=== PATIENT | female | born 1965 | race Hispanic/Latino ===

== ENCOUNTER → 2018-10-30 | Day surgery (SDC) | payer OTHER ==
[~2018-10-30] MED LIST: CRESTOR10 MG PO; FENTANYL CITRATE/PF 100MCG/2 ML INJ ONE; FEROSUL325 MG PO; LISINOPRIL10 MG PO; METFORMIN HCL500 MG PO; MIDAZOLAM HCL 5 MG/ML VIAL ONE; OMEGA-31000 MG PO; PROPOFOL IV EMULSION 10 MG/ML 50 ML VIAL ONE
--- OUTSIDE RECORDS SUMMARY | 2018-10-30 08:23 | XMS REPORT | Clinical Summary ---
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 Active metFORMIN (GLUCOPHAGE) Take 1,000 mg 0 1000 MG tablet by mouth 2 (two) times daily with breakfast and dinner. Active pravastatin (PRAVACHOL) Take 40 mg by 0 40 MG tablet mouth daily. Active pantoprazole (PROTONIX) Take 1 tablet 10 tablet 0 40 MG tablet (40 mg total) 7 by mouth 2 (two) times daily. Active Problems Problem Noted Date Chest pain 02/20/2017 Vomiting 02/20/2017 Diabetes mellitus, type 2 02/20/2017 Essential hypertension 02/20/2017 Hyperlipidemia 02/20/2017 Family History Medical History Relation Name Comments Cancer Brother Early Brother Depression Father Diabetes Father Hypertension Father Cancer Maternal Grandmother Arthritis Mother Diabetes Mother Hyperlipidemia Mother Hypertension Mother Miscarriages / Mother Stillbirths Stroke Mother Cancer Paternal Uncle Relation Name Status Comments Brother Father Maternal Grandmother Mother Paternal Uncle Social History Date Tobacco Use Types Packs/Day Years Used Never Smoker Smokeless Tobacco: Never Used Alcohol Use Drinks/Week oz/Week Comments No Sex Assigned at Date Recorded Not on file Industry Job Start Date Occupation Not on file Not on file Not on file Travel End Travel History Travel Start No recent travel history available. 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
--- OUTSIDE RECORDS SUMMARY | 2018-10-30 08:24 | XMS REPORT ---
Author Author [facility] Address Unknown Phone Unavailable Care Team Providers Care Department Helper Name Role Phone HUMZA CORTES Unavailable Unavailable Problems This patient has no known problems. Allergies, Adverse Reactions, Alerts This patient has no known allergies or adverse reactions. Medications This patient has no known medications. Results Test Description Test Time Test Comments Text Results Atomic Results Result Comments TISSUE EXAM 2017-02-27 18:22:00 Surgical Pathology Report Case: [id number] Authorizing Provider: Matthew Morrison MD Collected: 02/23/2017 0934 Ord ering Location: [address] Received: 02/25/2017 0758 Service Pathologist: Kiah Parra MD Specimens: A) - Biopsy, Gastric, BODY,ANTRUM/FORCEP B) - Distal Esophagus, FORCEP C) - Biopsy, Mid-esophagus, FORCEP A. STOMACH, ANTRUM, ENDOSCOPIC BIOPSY: - CHRONIC GASTRITIS - NO HELICOBACTER PYLORI LIKE ORGANISM SEEN ON WARTHIN STARRY STAIN - MICROFOCAL INTESTINAL METAPLASIA - NEGATIVE FOR DYSPLASIA, OR MALIGNANCYB. ESOPHAGUS, DISTAL, ENDOSCOPIC BIOPSY: - SQUAMOUS MUCOSA WITH REACTIVE CHANGES - NEGATIVE FOR INCREASED INTRA EPITHELIAL EOSINOPHILS - NO COLUMNAR MUCOSA PRESENT - NEGATIVE FOR DYSPLASIA OR MALIGNANCYC. ESOPHAGUS, MID, ENDOSCOPIC BIOPSY: - SQUAMOUS MUCOSA WITH NO PATHOLOGIC ALTERATION - NEGATIVE FOR INCREASED INTRAEPITHELIAL EOSINOPHILS - NEGATIVE FOR DYSPLASIA OR MALIGNANCY Signing Pathologist Direct Phone Line: [phone] signed by Kiah Parra MD on 02/27/2017 at 6:22 [id number]. Gastric biopsy. B. Distal esophagus biopsy. C. Mid esophagus biopsySpecimen is received in three containers of formalin all labeled with the patient's information.Specimen A: Labeled "body antrum gastric biopsy" consists of four fragments of morales tissue ranging from 0.1 to 0.4 cm, submitted in A1.Specimen B: Labeled "distal esophagus" consists of four fragments of off-white soft tissue ranging from less than 0.1 to 0.3 cm, submitted in B1.Specimen C: Labeled "mid esophagus biopsy" consists of four fragments of morales-white soft tissue ranging from 0.1 to 0.4 cm, submitted in C1. CG/ew A-C. Performed.The following special studies were performed on this case and the interpretation is incorporated in the diagnostic report above:WARTHIN-STARRY BLOOD CULTURE 2017-02-26 05:01:00 CULTURE (BEAKER) (test pxox=2224) No growth in 5 days BLOOD [id number] 05:01:00* Test Item Value Reference Range Comments CULTURE (BEAKER) (test senw=0633) No growth in 5 days UPPER RESPIRATORY [id number] 12:51:00* Test Item Value Reference Range Comments CULTURE (BEAKER) (test xmwh=8266) 4+ Normal respiratory cherelle present POCT-GLUCOSE [id number] 11:30:00* Test Item Value Reference Range Comments POC-GLUCOSE METER (BEAKER) (test plto=2980) 146 mg/dL 70-110 TESTED AT [address] [address] POCT-GLUCOSE [id number] 08:01:00* Test Item Value Reference Range Comments POC-GLUCOSE METER (BEAKER) (test wmro=6295) 185 mg/dL 70-110 TESTED AT [address] [address] POCT-GLUCOSE [id number] 21:49:00* Test Item Value Reference Range Comments POC-GLUCOSE METER (BEAKER) (test gwvr=4563) 187 mg/dL 70-110 TESTED AT [address] [address] POCT-GLUCOSE [id number] 17:18:00* Test Item Value Reference Range Comments POC-GLUCOSE METER (BEAKER) (test dyut=4691) 146 mg/dL 70-110 TESTED AT [address] [address] POCT-GLUCOSE [id number] 12:37:00* Test Item Value Reference Range Comments POC-GLUCOSE METER (BEAKER) (test actj=7288) 195 mg/dL 70-110 TESTED AT [address] [address] POCT-GLUCOSE [id number] 09:25:00* Test Item Value Reference Range Comments POC-GLUCOSE METER (BEAKER) (test rfda=8067) 152 mg/dL 70-110 TESTED AT [facility] [address] [facility] [address] RESPIRATORY PANEL [id number] 08:45:00* Test Item Value Reference Range Comments HUMAN METAPNEUMOVIRUS (BEAKER) (test xosm=2164) Not detected Not detected, Inconclusive RHINOVIRUS (BEAKER) (test vpyl=2757) Not detected Not detected, Inconclusive INFLUENZA A (BEAKER) (test yhbt=0427) Not detected Not detected, Inconclusive INFLUENZA A SUBTYPE H1 (BEAKER) (test cryu=5545) Not detected Not detected, Inconclusive INFLUENZA A SUBTYPE H3 (BEAKER) (test voyx=6822) Detected Not detected, Inconclusive INFLUENZA A SUBTYPE H1-2009 (BEAKER) (test egyk=8631) Not detected Not detected, Inconclusive INFLUENZA B (BEAKER) (test yylk=1285) Not detected Not detected, Inconclusive RESPIRATORY SYNCYTIAL VIRUS (BEAKER) (test pvjg=4929) Not detected Not detected, Inconclusive PARAINFLUENZA VIRUS 1 (BEAKER) (test njae=0927) Not detected Not detected, Inconclusive PARAINFLUENZA VIRUS 2 (BEAKER) (test toed=3755) Not detected Not detected, Inconclusive PARAINFLUENZA VIRUS 3 (BEAKER) (test kzhh=1623) Not detected Not detected, Inconclusive PARAINFLUENZA VIRUS 4 (BEAKER) (test tknp=0998) Not detected Not detected, Inconclusive ADENOVIRUS (BEAKER) (test syrl=7995) Not detected Not detected, Inconclusive CORONAVIRUS 229E (BEAKER) (test ciwv=2815) Not detected Not detected, Inconclusive CORONAVIRUS HKU1 (BEAKER) (test qkgm=5594) Not detected Not detected, Inconclusive CORONAVIRUS NL63 (BEAKER) (test dgil=9638) Not detected Not detected, Inconclusive CORONAVIRUS OC43 (BEAKER) (test wzju=4414) Not detected Not detected, Inconclusive BORDETELLA PERTUSSIS (BEAKER) (test ctdm=2687) Not detected Not detected, Inconclusive CHLAMYDOPHILA PNEUMONIAE (BEAKER) (test vwmi=5766) Not detected Not detected, Inconclusive MYCOPLASMA PNEUMONIAE (BEAKER) (test yrtl=2754) Not detected Not detected, Inconclusive SPUTUM CULTURE + GRAM [id number] 08:02:00* Test Item Value Reference Range Comments CULTURE (BEAKER) (test scto=0351) Oropharyngeal contamination, specimen rejected. Recollect requested. GRAM STAIN RESULT (BEAKER) (test twnn=3736) 1+ WBCs GRAM STAIN RESULT (BEAKER) (test vnty=41592) 1+ gram negative rods GRAM STAIN RESULT (BEAKER) (test vxlv=66280) 1+ gram positive cocci in pairs and clusters BASIC METABOLIC [id number] 06:12:00* Test Item Value Reference Range Comments SODIUM (BEAKER) (test ttpu=104) 136 meq/L 136-145 POTASSIUM (BEAKER) (test jsfa=218) 3.6 meq/L 3.5-5.1 CHLORIDE (BEAKER) (test ucdv=741) 108 meq/L 98-107 CO2 (BEAKER) (test eqiy=111) 22 meq/L 22-29 BLOOD UREA NITROGEN (BEAKER) (test vlbr=067) 7 mg/dL 7-21 CREATININE (BEAKER) (test nmzm=708) 0.55 mg/dL 0.57-1.25 GLUCOSE RANDOM (BEAKER) (test kxqk=081) 157 mg/dL 70-105 CALCIUM (BEAKER) (test bihz=823) 8.1 mg/dL 8.4-10.2 EGFR (BEAKER) (test meth=6399) mL/min/1.73 sq m INSUFFICIENT CLINICAL DATA TO CALCULATE ESTIMATED GFR. CBC W/PLT COUNT & AUTO [id number] 06:06:00* Test Item Value Reference Range Comments WHITE BLOOD CELL COUNT (BEAKER) (test nnxs=411) 3.6 K/ L 3.5-10.5 RED BLOOD CELL COUNT (BEAKER) (test sezw=499) 3.96 M/ L 3.93-5.22 HEMOGLOBIN (BEAKER) (test ryit=399) 10.4 GM/DL 11.2-15.7 HEMATOCRIT (BEAKER) (test nhbc=045) 32.8 % 34.1-44.9 MEAN CORPUSCULAR VOLUME (BEAKER) (test pawl=455) 82.8 fL 79.4-94.8 MEAN CORPUSCULAR HEMOGLOBIN (BEAKER) (test lolw=966) 26.3 pg 25.6-32.2 MEAN CORPUSCULAR HEMOGLOBIN CONC (BEAKER) (test txgx=957) 31.7 GM/DL 32.2-35.5 RED CELL DISTRIBUTION WIDTH (BEAKER) (test gcin=475) 13.9 % 11.7-14.4 PLATELET COUNT (BEAKER) (test oulh=637) 242 K/CU MM 150-450 MEAN PLATELET VOLUME (BEAKER) (test xsrt=739) 9.6 fL 9.4-12.3 NUCLEATED RED BLOOD CELLS (BEAKER) (test xmxb=246) 0 /100 WBC 0-0 NEUTROPHILS RELATIVE PERCENT (BEAKER) (test pcqo=270) 55 % LYMPHOCYTES RELATIVE PERCENT (BEAKER) (test akri=679) 33 % MONOCYTES RELATIVE PERCENT (BEAKER) (test odya=496) 11 % EOSINOPHILS RELATIVE PERCENT (BEAKER) (test nmtj=858) 1 % BASOPHILS RELATIVE PERCENT (BEAKER) (test bngc=717) 0 % NEUTROPHILS ABSOLUTE COUNT (BEAKER) (test llrf=440) 1.97 K/ L 1.56-6.13 LYMPHOCYTES ABSOLUTE COUNT (BEAKER) (test nfwk=855) 1.16 K/ L 1.18-3.74 MONOCYTES ABSOLUTE COUNT (BEAKER) (test ntcf=098) 0.38 K/ L 0.24-0.36 EOSINOPHILS ABSOLUTE COUNT (BEAKER) (test olxs=512) 0.02 K/ L 0.04-0.36 BASOPHILS ABSOLUTE COUNT (BEAKER) (test jtpl=419) 0.01 K/ L 0.01-0.08 IMMATURE GRANULOCYTES-RELATIVE PERCENT (BEAKER) (test aark=7661) 0 % 0-1 [id number] 06:02:00* Test Item Value Reference Range Comments PHOSPHORUS (BEAKER) (test yjwq=587) 2.2 mg/dL 2.3-4.7 [id number] 06:02:00* Test Item Value Reference Range Comments MAGNESIUM (BEAKER) (test kgox=798) 1.8 mg/dL 1.6-2.6 HEPATIC FUNCTION [id number] 06:02:00* Test Item Value Reference Range Comments TOTAL PROTEIN (BEAKER) (test tjdz=778) 6.3 gm/dL 6.0-8.3 ALBUMIN (BEAKER) (test nbmt=6295) 3.2 g/dL 3.5-5.0 BILIRUBIN TOTAL (BEAKER) (test kono=384) < mg/dL 0.2-1.2 BILIRUBIN DIRECT (BEAKER) (test mwsj=706) 0.1 mg/dL 0.1-0.5 ALKALINE PHOSPHATASE (BEAKER) (test htau=912) 86 U/L 40-150 AST (SGOT) (BEAKER) (test gawa=546) 57 U/L 5-34 ALT (SGPT) (BEAKER) (test osrr=865) 116 U/L 6-55 RAPID STREP A [id number] 23:06:00* Test Item Value Reference Range Comments STREP A ANTIGEN (BEAKER) (test rswc=758) Positive Negative POCT-GLUCOSE [id number] 20:45:00* Test Item Value Reference Range Comments POC-GLUCOSE METER (BEAKER) (test pwwz=9572) 178 mg/dL 70-110 TESTED AT [facility] [address] [facility] [address] SPUTUM CULTURE + GRAM [id number] 16:33:00* Test Item Value Reference Range Comments CULTURE (BEAKER) (test rydn=9369) Oropharyngeal contamination, specimen rejected. Recollect requested. GRAM STAIN RESULT (BEAKER) (test stms=1443) 3+ White blood cells seen GRAM STAIN RESULT (BEAKER) (test nluf=92449) >25 epithelial cells GRAM STAIN RESULT (BEAKER) (test swnh=88334) 4+ gram negative rods GRAM STAIN RESULT (BEAKER) (test heoc=370539) 4+ gram negative cocci GRAM STAIN RESULT (BEAKER) (test zxen=650138) <1+ gram positive cocci in pairs and clusters INFLUENZA A H1N1 [id number] 16:05:00* Test Item Value Reference Range Comments INFLUENZA A RNA (BEAKER) (test dtez=4114) Detected Not Detected, Inconclusive NOVEL H1N1 RNA (BEAKER) (test npci=1623) Not Detected Not Detected, Inconclusive These assays were performed by real-time RT-PCR (fire prevention officer-PCR) utilizing fluorogenic hydrolysis probe technology for the detection of human Influenza A viruses and t he differential detection of novel H1N1 Influenza virus in respiratory specimens . The test is composed of (1) an RNA extraction from patient specimen, and (2) r RT-PCR amplification and detection with human Influenza A and novel [id number] c primers and probes. A well-conserved region of the Influenza A matrix gene is targeted in one set of reactions to identify both seasonal Influenza A and novel H1N1 Influenza virus in the specimen. In addition, a specific region of the he magglutinin gene is targeted to differentiate the novel H1N1 virus from the seas onal human influenza. An internal control is used to confirm PCR amplification. Genetic variation and other factors can affect the accuracy of nucleic acid jose g ting; therefore, the results should be interpreted in light of clinical data. Th is test was developed and its performance characteristics determined by the [facility] Pathology Department, Section of Molecular Pathology. It has not been cleared or approved by the U.S. Food and Drug Administration (F DA). Since FDA approval is not required for clinical use of the test, validatio n was done as required by The Clinical Laboratory Amendments of 1988.U/S, RENAL, [id number] 15:00:00Reason for exam:->r/o renal stoneFINAL REPORT HISTORY : Nephrolithiasis COMPARISON : CT of the abdomen and pelvis performed 02/21/2017 Discussion:Sonographic evaluation of the kidneys is performed. Right kidney: 12.5 cm in length, normal in size, with cortical thickness of 1.4 cm. Normal cortical echogenicity. No mass. No shadowing calculus. No hydronephrosis. Left kidney: 12.5 cm in length, normal in size, with cortical thickness of 1.6 cm. Normal cortical echogenicity. No mass. A shadowing 6 mm stone is identified in the left kidney. No hydronephrosis. Limited Doppler evaluation demonstrates normal color Doppler flow within katie ateral renal katerine. Fluid: No perinephric fluid. Bladder: Unremarkable. IMPR ESSION:Nonobstructing 6 mm left renal calculus. Signed: Bishop Nguyen MDReport Verified Date/Time: 02/21/2017 15:00:58 Reading Location: [facility] [id number] Ultraso und Reading Room 17 03:[address], CHEST, WITHOUT [id number] 13:34:00FINAL REPORT CT of the Chest dated 02/21/2017 CLINICAL INFORMATION: Chest pain or SOB, pleurisy or effusion suspected Comment: Axial images of the chest were obtained from thoracic inlet to the upper abdomen without intravenous contrast. This exam was performed according to our departmental dose- optimization program, which includes automated exposure control, adjustment of the mA and/or kV according to patient size and/or use of interactive recons truction technique. Both thyroid lobes are normal in appearance. Heart is normal in size. Great vessels are unremarkable. No adenopathy in the mediastinum or p erihilar region. Trachea and mainstem bronchi are patent. Pleural thickening is seen in the right hemithorax. Subsegmental atelectasis is seen in the lingula a nd both lung bases. The rest of the lungs are clear. No nodular, mass lesion, or airspace disease is seen. Visualized upper abdomen demonstrates no focal lesion. Impression:1. Right pleural thickening.2. Lingula and bibasilar subsegmental a telectasis. Signed: Shelley Salcedo Verified Date/Time: 02/21/2017 13:34:4 3 Reading Location: [facility] C013Y CT Body Reading Room -GLUCOSE [id number] 08:31:00* Test Item Value Reference Range Comments POC-GLUCOSE METER (BEAKER) (test qxjt=5609) 212 mg/dL 70-110 TESTED AT [facility] [address] [facility] [address] BASIC METABOLIC [id number] 06:47:00* Test Item Value Reference Range Comments SODIUM (BEAKER) (test rbog=355) 130 meq/L 136-145 POTASSIUM (BEAKER) (test hljr=889) 3.3 meq/L 3.5-5.1 CHLORIDE (BEAKER) (test tcdc=978) 98 meq/L 98-107 CO2 (BEAKER) (test wska=816) 23 meq/L 22-29 BLOOD UREA NITROGEN (BEAKER) (test fqhl=278) 7 mg/dL 7-21 CREATININE (BEAKER) (test qrpy=951) 0.60 mg/dL 0.57-1.25 GLUCOSE RANDOM (BEAKER) (test bgtp=311) 240 mg/dL 70-105 CALCIUM (BEAKER) (test ncrz=649) 8.2 mg/dL 8.4-10.2 EGFR (BEAKER) (test gsyo=6048) mL/min/1.73 sq m INSUFFICIENT CLINICAL DATA TO CALCULATE ESTIMATED GFR. [id number] 06:36:00* Test Item Value Reference Range Comments PHOSPHORUS (BEAKER) (test ozyd=990) 2.8 mg/dL 2.3-4.7 [id number] 06:36:00* Test Item Value Reference Range Comments MAGNESIUM (BEAKER) (test iwzl=227) 1.7 mg/dL 1.6-2.6 HEPATIC FUNCTION [id number] 06:36:00* Test Item Value Reference Range Comments TOTAL PROTEIN (BEAKER) (test ermi=664) 7.3 gm/dL 6.0-8.3 ALBUMIN (BEAKER) (test rsgv=4731) 3.8 g/dL 3.5-5.0 BILIRUBIN TOTAL (BEAKER) (test abiq=408) 0.3 mg/dL 0.2-1.2 BILIRUBIN DIRECT (BEAKER) (test fcle=150) 0.2 mg/dL 0.1-0.5 ALKALINE PHOSPHATASE (BEAKER) (test jqdl=609) 111 U/L 40-150 AST (SGOT) (BEAKER) (test rtaz=602) 237 U/L 5-34 ALT (SGPT) (BEAKER) (test ruta=146) 217 U/L 6-55 CBC W/PLT COUNT & AUTO [id number] 05:34:00* Test Item Value Reference Range Comments WHITE BLOOD CELL COUNT (BEAKER) (test jcis=175) 5.8 K/ L 3.5-10.5 RED BLOOD CELL COUNT (BEAKER) (test qjxt=147) 4.22 M/ L 3.93-5.22 HEMOGLOBIN (BEAKER) (test ixaa=073) 11.0 GM/DL 11.2-15.7 HEMATOCRIT (BEAKER) (test sxsn=045) 34.6 % 34.1-44.9 MEAN CORPUSCULAR VOLUME (BEAKER) (test njmj=732) 82.0 fL 79.4-94.8 MEAN CORPUSCULAR HEMOGLOBIN (BEAKER) (test mjzw=824) 26.1 pg 25.6-32.2 MEAN CORPUSCULAR HEMOGLOBIN CONC (BEAKER) (test woec=116) 31.8 GM/DL 32.2-35.5 RED CELL DISTRIBUTION WIDTH (BEAKER) (test emsq=304) 13.7 % 11.7-14.4 PLATELET COUNT (BEAKER) (test oeso=575) 257 K/CU MM 150-450 MEAN PLATELET VOLUME (BEAKER) (test fbhf=435) 9.6 fL 9.4-12.3 NUCLEATED RED BLOOD CELLS (BEAKER) (test ueqi=842) 0 /100 WBC 0-0 NEUTROPHILS RELATIVE PERCENT (BEAKER) (test fexj=296) 89 % LYMPHOCYTES RELATIVE PERCENT (BEAKER) (test qovc=438) 6 % MONOCYTES RELATIVE PERCENT (BEAKER) (test xaot=829) 5 % EOSINOPHILS RELATIVE PERCENT (BEAKER) (test mssa=353) 0 % BASOPHILS RELATIVE PERCENT (BEAKER) (test jhvh=508) 0 % NEUTROPHILS ABSOLUTE COUNT (BEAKER) (test zrrq=472) 5.17 K/ L 1.56-6.13 LYMPHOCYTES ABSOLUTE COUNT (BEAKER) (test gbvy=874) 0.34 K/ L 1.18-3.74 MONOCYTES ABSOLUTE COUNT (BEAKER) (test wdeo=806) 0.26 K/ L 0.24-0.36 EOSINOPHILS ABSOLUTE COUNT (BEAKER) (test efyx=725) 0.00 K/ L 0.04-0.36 BASOPHILS ABSOLUTE COUNT (BEAKER) (test hata=438) 0.02 K/ L 0.01-0.08 IMMATURE GRANULOCYTES-RELATIVE PERCENT (BEAKER) (test jala=3109) 1 % 0-1 CT, [id number] 01:55:00Reason for exam:->Vomiting.FINAL REPORT CT, ABDOMEN \\T\\ PELVIS, WITH IV CONTRAST INDICATION: Vomiting.Vomiting. COMPARISON: None TECHNIQUE:Post contrast abdomen and pelvis CT. Coronal and sagittal reformatted images obtained. DOSE REDUCTION: Dose modulation, iterative reconstruction, and/or weight-based adjustment of the mA/kV was utilized to reduce the radiation dose to as low as reasonably achieva ble. FINDINGS: Lower thorax: Visible airspaces clear. No effusion. Liver: Mild f atty infiltration. No abnormally enhancing lesions.Gallbladder and biliary tree: Prior cholecystectomy. No pathologic ductal dilation.Pancreas: No acute finding s.Spleen: No acute findingsAdrenal Glands: No acute findings.Kidneys and ureters : Nonobstructing 8 mm calculus in the left inferior renal collecting system. Pun ctate, smaller nonobstructing stones bilaterally. Irregular left renal contour.B ladder and reproductive organs: Unremarkable. Stomach and Duodenum: Small slidin g hiatal hernia.Small and large intestine: Normal small bowel caliber. Unremarka ble colon.Appendix: Normal. Major vascular structures: Normal aortic caliber.Per itoneum and retroperitoneum: No free air, fluid or adenopathy. Skeleton: No acute bony abnormality.Additional findings: None. IMPRESSION: No acute abnormal ity in the abdomen or pelvis to explain the provided presenting symptom. Nonobst ructing 8 mm left renal calculus. Punctate nonobstructing calculi are present bi laterally. Irregular cortical contours of the left kidney may be congenital or r eflect sequela of prior infection or infarct. Signed: JR Nara, Fay Rose Verified Date/Time: 02/21/2017 01:55:48 Reading Location: [facility] C013Y CT Body Reading Room Electronically signed by: FAY SALAMANCA on 01/25 01:55 AM POCT-GLUCOSE [id number] 21:33:00* Test Item Value Reference Range Comments POC-GLUCOSE METER (BEAKER) (test nnlc=1898) 177 mg/dL 70-110 TESTED AT [facility] [address] [place] [address] URINALYSIS W/ [id number] 21:24:00* Test Item Value Reference Range Comments COLOR (BEAKER) (test pwfi=578) Light Yellow CLARITY (BEAKER) (test rfsx=997) Clear SPECIFIC GRAVITY UA (BEAKER) (test ligf=158) 1.011 1.001-1.035 PH UA (BEAKER) (test uszt=656) 6.5 5.0-8.0 PROTEIN UA (BEAKER) (test bzvz=012) Negative Negative GLUCOSE UA (BEAKER) (test ascv=898) Negative Negative KETONES UA (BEAKER) (test eadj=783) Negative Negative BILIRUBIN UA (BEAKER) (test mxdk=923) Negative Negative BLOOD UA (BEAKER) (test wuko=186) Negative Negative NITRITE UA (BEAKER) (test whkr=327) Negative Negative LEUKOCYTE ESTERASE UA (BEAKER) (test rpit=590) Negative Negative UROBILINOGEN UA (BEAKER) (test xvcl=286) 0.2 mg/dL 0.2-1.0 RBC UA (BEAKER) (test pxzf=471) 1 /HPF WBC UA (BEAKER) (test aprg=479) < /HPF SQUAMOUS EPITHELIAL (BEAKER) (test lxjs=439) 3 /HPF SOURCE(BEAKER) (test jvuq=3156) Urine, Voided RAPID INFLUENZA A&B [id number] 21:07:00* Test Item Value Reference Range Comments RAPID INFLUENZA A AG (BEAKER) (test sqlm=2725) Negative Negative, Inconclusive RAPID INFLUENZA B AG (BEAKER) (test lewl=9509) Negative Negative, Inconclusive CREATINE KINASE (CK), TOTAL AND [id number] 19:35:00* Test Item Value Reference Range Comments CREATINE KINASE TOTAL (BEAKER) (test rqym=432) 23 U/L 29-200 CREATINE KINASE-MB (BEAKER) (test bnef=124) 0.2 ng/mL 0.0-6.6 CREATINE KINASE-MB INDEX (BEAKER) (test zjxa=593) 0.9 % CK-MB Reference Range:<6.7 Normal6.7-10.0 Borderline>10.0 Abnormal TROPONIN [id number] 19:35:00* Test Item Value Reference Range Comments TROPONIN I (BEAKER) (test aola=524) < ng/mL 0.00-0.03 Troponin I (TnI) levels must be interpreted in the context of the presenting sym ptoms and the clinical findings. Elevated TnI levels indicate myocardial damage, but are not specific for ischemic heart disease. Elevated TnI levels are seen in patients with other cardiac conditions (including myocarditis and congestive h eart failure), and slight TnI elevations occur in patients with other conditions , including sepsis, renal failure, acidosis, acute neurological disease, and per sistent tachyarrhythmia.RAD, CHEST, 1 VIEW, NON [id number] 19:28:00Reason for exam:->suspected infectionShould this be performed at the bedside?->YesFINAL REPORT Portable chest 02/20/2017 COMPARISON: 02/19/2017 The heart, lungs and mediastinum are within normal limits and unchanged. No significant osseous abnormalities are identified. Signed: Charlene Garay MDReport Verified Date/Time: 02/20/2017 19:28:05 Reading Location: [facility] C013W Consult Reading Room W/PLT COUNT & AUTO [id number] 19:16:00* Test Item Value Reference Range Comments WHITE BLOOD CELL COUNT (BEAKER) (test nill=441) 6.7 K/ L 3.5-10.5 RED BLOOD CELL COUNT (BEAKER) (test vily=215) 4.07 M/ L 3.93-5.22 HEMOGLOBIN (BEAKER) (test glab=659) 10.8 GM/DL 11.2-15.7 HEMATOCRIT (BEAKER) (test xurr=275) 33.3 % 34.1-44.9 MEAN CORPUSCULAR VOLUME (BEAKER) (test iruq=447) 81.8 fL 79.4-94.8 MEAN CORPUSCULAR HEMOGLOBIN (BEAKER) (test rofm=246) 26.5 pg 25.6-32.2 MEAN CORPUSCULAR HEMOGLOBIN CONC (BEAKER) (test uzih=191) 32.4 GM/DL 32.2-35.5 RED CELL DISTRIBUTION WIDTH (BEAKER) (test zoka=917) 13.8 % 11.7-14.4 PLATELET COUNT (BEAKER) (test leos=687) 266 K/CU MM 150-450 MEAN PLATELET VOLUME (BEAKER) (test gcen=644) 9.3 fL 9.4-12.3 NUCLEATED RED BLOOD CELLS (BEAKER) (test aqka=481) 0 /100 WBC 0-0 NEUTROPHILS RELATIVE PERCENT (BEAKER) (test bans=209) 86 % LYMPHOCYTES RELATIVE PERCENT (BEAKER) (test cclx=875) 6 % MONOCYTES RELATIVE PERCENT (BEAKER) (test hqcb=894) 6 % EOSINOPHILS RELATIVE PERCENT (BEAKER) (test ubqz=308) 1 % BASOPHILS RELATIVE PERCENT (BEAKER) (test jqwt=177) 0 % NEUTROPHILS ABSOLUTE COUNT (BEAKER) (test vuzo=952) 5.74 K/ L 1.56-6.13 LYMPHOCYTES ABSOLUTE COUNT (BEAKER) (test ofgz=650) 0.39 K/ L 1.18-3.74 MONOCYTES ABSOLUTE COUNT (BEAKER) (test opkj=365) 0.43 K/ L 0.24-0.36 EOSINOPHILS ABSOLUTE COUNT (BEAKER) (test urlf=526) 0.05 K/ L 0.04-0.36 BASOPHILS ABSOLUTE COUNT (BEAKER) (test eohk=886) 0.03 K/ L 0.01-0.08 IMMATURE GRANULOCYTES-RELATIVE PERCENT (BEAKER) (test buqw=5667) 1 % 0-1 POCT-GLUCOSE [id number] 18:26:00* Test Item Value Reference Range Comments POC-GLUCOSE METER (BEAKER) (test elyh=7836) 200 mg/dL 70-110 TESTED AT [facility] [address] [facility] [address] SEDIMENTATION [id number] 15:13:00* Test Item Value Reference Range Comments SEDIMENTATION RATE, ERYTHROCYTE (BEAKER) (test mjei=347) 22 mm/HR 0-30 CREATINE KINASE (CK), TOTAL AND [id number] 14:51:00* Test Item Value Reference Range Comments CREATINE KINASE TOTAL (BEAKER) (test bqdo=963) 28 U/L 29-200 CREATINE KINASE-MB (BEAKER) (test oico=212) 0.4 ng/mL 0.0-6.6 CREATINE KINASE-MB INDEX (BEAKER) (test nxun=774) 1.4 % CK-MB Reference Range:<6.7 Normal6.7-10.0 Borderline>10.0 Abnormal TROPONIN [id number] 14:51:00* Test Item Value Reference Range Comments TROPONIN I (BEAKER) (test gyqf=837) < ng/mL 0.00-0.03 Troponin I (TnI) levels must be interpreted in the context of the presenting sym ptoms and the clinical findings. Elevated TnI levels indicate myocardial damage, but are not specific for ischemic heart disease. Elevated TnI levels are seen in patients with other cardiac conditions (including myocarditis and congestive h eart failure), and slight TnI elevations occur in patients with other conditions , including sepsis, renal failure, acidosis, acute neurological disease, and per sistent tachyarrhythmia.[id number] 14:38:00* Test Item Value Reference Range Comments D-DIMER QUANTITATIVE (BEAKER) (test tqfc=644) 0.29 MG/L FEU <0.50 Intended Use: The D-Dimer Assay can be used to aid in the diagnosis of Deep Vein Thrombosis (DVT) and Pulmonary Embolism Disease (PED).In patients with low pre- test probability, various studies concerning STA Liatest D-dimer test have repor brigid that with a cutoff value of 0.50 MG/L FEU, the Negative Predictive Value (RES HABILITATION ASSISTANT V) regarding the exclusion of thrombosis is within 95-100% range.HEMOGLOBIN A1C 2017-02-20 13:38:00* Test Item Value Reference Range Comments HEMOGLOBIN A1C (BEAKER) (test guer=627) 7.1 % 4.3-6.1 POCT-GLUCOSE [id number] 12:54:00* Test Item Value Reference Range Comments POC-GLUCOSE METER (BEAKER) (test pjxl=0511) 150 mg/dL 70-110 TESTED AT [facility] [address] [facility] [address] TSH/FREE T4 IF [id number] 11:21:00* Test Item Value Reference Range Comments THYROID STIMULATING HORMONE (BEAKER) (test waty=002) 1.02 uIU/mL 0.35-4.94 CBC W/PLT COUNT & AUTO [id number] 11:09:00* Test Item Value Reference Range Comments WHITE BLOOD CELL COUNT (BEAKER) (test lmry=794) 6.3 K/ L 3.5-10.5 RED BLOOD CELL COUNT (BEAKER) (test jwid=744) 3.94 M/ L 3.93-5.22 HEMOGLOBIN (BEAKER) (test nrjk=375) 10.4 GM/DL 11.2-15.7 HEMATOCRIT (BEAKER) (test hajl=445) 32.7 % 34.1-44.9 MEAN CORPUSCULAR VOLUME (BEAKER) (test gklj=348) 83.0 fL 79.4-94.8 MEAN CORPUSCULAR HEMOGLOBIN (BEAKER) (test jfut=179) 26.4 pg 25.6-32.2 MEAN CORPUSCULAR HEMOGLOBIN CONC (BEAKER) (test mfda=124) 31.8 GM/DL 32.2-35.5 RED CELL DISTRIBUTION WIDTH (BEAKER) (test psnq=548) 13.9 % 11.7-14.4 PLATELET COUNT (BEAKER) (test fzyf=099) 282 K/CU MM 150-450 MEAN PLATELET VOLUME (BEAKER) (test wbsz=468) 9.6 fL 9.4-12.3 NUCLEATED RED BLOOD CELLS (BEAKER) (test hepm=278) 0 /100 WBC 0-0 NEUTROPHILS RELATIVE PERCENT (BEAKER) (test lvnw=548) 84 % LYMPHOCYTES RELATIVE PERCENT (BEAKER) (test nlun=118) 8 % MONOCYTES RELATIVE PERCENT (BEAKER) (test dsbv=155) 6 % EOSINOPHILS RELATIVE PERCENT (BEAKER) (test ltuf=184) 1 % BASOPHILS RELATIVE PERCENT (BEAKER) (test ojcx=617) 1 % NEUTROPHILS ABSOLUTE COUNT (BEAKER) (test hbhs=985) 5.29 K/ L 1.56-6.13 LYMPHOCYTES ABSOLUTE COUNT (BEAKER) (test nguj=862) 0.49 K/ L 1.18-3.74 MONOCYTES ABSOLUTE COUNT (BEAKER) (test srdu=430) 0.35 K/ L 0.24-0.36 EOSINOPHILS ABSOLUTE COUNT (BEAKER) (test xjan=679) 0.08 K/ L 0.04-0.36 BASOPHILS ABSOLUTE COUNT (BEAKER) (test aihm=039) 0.04 K/ L 0.01-0.08 IMMATURE GRANULOCYTES-RELATIVE PERCENT (BEAKER) (test lczm=0838) 1 % 0-1 BASIC METABOLIC [id number] 10:59:00* Test Item Value Reference Range Comments SODIUM (BEAKER) (test ftui=163) 135 meq/L 136-145 POTASSIUM (BEAKER) (test tjnx=278) 3.8 meq/L 3.5-5.1 CHLORIDE (BEAKER) (test zdsv=300) 101 meq/L 98-107 CO2 (BEAKER) (test zfqn=988) 22 meq/L 22-29 BLOOD UREA NITROGEN (BEAKER) (test zybe=510) 10 mg/dL 7-21 CREATININE (BEAKER) (test pllc=893) 0.68 mg/dL 0.57-1.25 GLUCOSE RANDOM (BEAKER) (test ytud=481) 217 mg/dL 70-105 CALCIUM (BEAKER) (test wbqt=397) 8.9 mg/dL 8.4-10.2 EGFR (BEAKER) (test nwld=9640) mL/min/1.73 sq m INSUFFICIENT CLINICAL DATA TO CALCULATE ESTIMATED GFR. [id number] 10:57:00* Test Item Value Reference Range Comments AMYLASE (BEAKER) (test aimy=065) 58 U/L 25-125 HEPATIC FUNCTION [id number] 10:57:00* Test Item Value Reference Range Comments TOTAL PROTEIN (BEAKER) (test ihsx=434) 7.2 gm/dL 6.0-8.3 ALBUMIN (BEAKER) (test egci=9701) 3.8 g/dL 3.5-5.0 BILIRUBIN TOTAL (BEAKER) (test kbim=596) 0.5 mg/dL 0.2-1.2 BILIRUBIN DIRECT (BEAKER) (test oudp=887) 0.2 mg/dL 0.1-0.5 ALKALINE PHOSPHATASE (BEAKER) (test mdko=227) 77 U/L 40-150 AST (SGOT) (BEAKER) (test dchq=733) 45 U/L 5-34 ALT (SGPT) (BEAKER) (test ioep=525) 34 U/L 6-55 LIPID [id number] 10:57:00* Test Item Value Reference Range Comments TRIGLYCERIDES (BEAKER) (test elqu=884) 249 mg/dL CHOLESTEROL (BEAKER) (test dovf=459) 209 mg/dL HDL CHOLESTEROL (BEAKER) (test zduq=603) 48 mg/dL LDL CHOLESTEROL CALCULATED (BEAKER) (test mgyt=777) 111 mg/dL Triglyceride Reference Range: Low Risk <150 Borderline 150-199 High Risk 200-499 Very High Risk >=500Cholesterol Reference Range: Low Risk <200 Borderline 200-239 High Risk >240HDL Cholesterol Reference Range: Low Risk >=60 High Risk <40LDL Cholesterol Reference Range: Optimal <100 Near Optimal 100-129 Borderline 130-159 High 160-189 Very High >=190 [id number] 10:57:00* Test Item Value Reference Range Comments MAGNESIUM (BEAKER) (test cnif=651) 1.6 mg/dL 1.6-2.6 [id number] 10:57:00* Test Item Value Reference Range Comments PHOSPHORUS (BEAKER) (test zuul=008) 3.5 mg/dL 2.3-4.7 [id number] 10:57:00* Test Item Value Reference Range Comments LIPASE (BEAKER) (test dirj=945) 27 U/L 8-78 C-REACTIVE [id number] 10:57:00* Test Item Value Reference Range Comments C-REACTIVE PROTEIN (BEAKER) (test qtxf=875) 1.37 mg/dL 0.00-0.50 POCT-GLUCOSE [id number] 07:13:00* Test Item Value Reference Range Comments POC-GLUCOSE METER (BEAKER) (test kmyz=2543) 191 mg/dL 70-110 TESTED AT [facility] [address] [place] [address] CREATINE KINASE (CK), TOTAL AND [id number] 22:20:00* Test Item Value Reference Range Comments CREATINE KINASE TOTAL (BEAKER) (test rgdi=421) 40 U/L 29-200 CREATINE KINASE-MB (BEAKER) (test kdpo=868) 0.7 ng/mL 0.0-6.6 CREATINE KINASE-MB INDEX (BEAKER) (test unat=219) 1.8 % CK-MB Reference Range:<6.7 Normal6.7-10.0 Borderline>10.0 Abnormal TROPONIN [id number] 22:20:00* Test Item Value Reference Range Comments TROPONIN I (BEAKER) (test pyjd=365) < ng/mL 0.00-0.03 Troponin I (TnI) levels must be interpreted in the context of the presenting sym ptoms and the clinical findings. Elevated TnI levels indicate myocardial damage, but are not specific for ischemic heart disease. Elevated TnI levels are seen in patients with other cardiac conditions (including myocarditis and congestive h eart failure), and slight TnI elevations occur in patients with other conditions , including sepsis, renal failure, acidosis, acute neurological disease, and per sistent tachyarrhythmia.B-TYPE NATRIURETIC FACTOR (BNP)2017-02-19 22:20:00* Test Item Value Reference Range Comments B-TYPE NATRIURETIC PEPTIDE (BEAKER) (test dyxa=937) 12 pg/mL 0-100 COMPREHENSIVE METABOLIC [id number] 22:14:00* Test Item Value Reference Range Comments TOTAL PROTEIN (BEAKER) (test csxa=211) 7.7 gm/dL 6.0-8.3 ALBUMIN (BEAKER) (test bhbq=2501) 4.0 g/dL 3.5-5.0 ALKALINE PHOSPHATASE (BEAKER) (test yylf=314) 78 U/L 40-150 BILIRUBIN TOTAL (BEAKER) (test oous=599) 0.3 mg/dL 0.2-1.2 SODIUM (BEAKER) (test ooob=819) 138 meq/L 136-145 POTASSIUM (BEAKER) (test wbwf=648) 3.7 meq/L 3.5-5.1 CHLORIDE (BEAKER) (test weth=939) 105 meq/L 98-107 CO2 (BEAKER) (test gawi=177) 24 meq/L 22-29 BLOOD UREA NITROGEN (BEAKER) (test qwgu=132) 12 mg/dL 7-21 CREATININE (BEAKER) (test halt=408) 0.62 mg/dL 0.57-1.25 GLUCOSE RANDOM (BEAKER) (test evwx=948) 162 mg/dL 70-105 CALCIUM (BEAKER) (test wrkj=045) 9.5 mg/dL 8.4-10.2 AST (SGOT) (BEAKER) (test oldp=871) 13 U/L 5-34 ALT (SGPT) (BEAKER) (test ifzy=341) 21 U/L 6-55 EGFR (BEAKER) (test fsad=2659) mL/min/1.73 sq m INSUFFICIENT CLINICAL DATA TO CALCULATE ESTIMATED GFR. [id number] 22:13:00* Test Item Value Reference Range Comments MAGNESIUM (BEAKER) (test efpz=219) 1.9 mg/dL 1.6-2.6 RAD, CHEST, 2 [id number] 22:02:00Reason for exam:->CHEST PAINFINAL REPORT Examination: Two view Chest X-ray. CLINICAL HISTORY: Chest pain. COMPARISON:None. The cardiomediastinal and hilar contours are unremarkable. The lung volumes are low. There is no focal consolidation, pne umothorax, large pleural effusion or evidence of overt pulmonary edema. There is no acute bony abnormality. Signed: Joaquin [place] Verified Date/Time: 02/19/2017 22:02:37 Reading Location: [address] Reading Room W/PLT COUNT & AUTO [id number] 21:51:00* Test Item Value Reference Range Comments WHITE BLOOD CELL COUNT (BEAKER) (test ybrt=503) 8.6 K/ L 3.5-10.5 RED BLOOD CELL COUNT (BEAKER) (test qhmk=841) 4.38 M/ L 3.93-5.22 HEMOGLOBIN (BEAKER) (test drbu=904) 11.7 GM/DL 11.2-15.7 HEMATOCRIT (BEAKER) (test dvri=385) 35.9 % 34.1-44.9 MEAN CORPUSCULAR VOLUME (BEAKER) (test wlig=813) 82.0 fL 79.4-94.8 MEAN CORPUSCULAR HEMOGLOBIN (BEAKER) (test hpyb=314) 26.7 pg 25.6-32.2 MEAN CORPUSCULAR HEMOGLOBIN CONC (BEAKER) (test ogzp=759) 32.6 GM/DL 32.2-35.5 RED CELL DISTRIBUTION WIDTH (BEAKER) (test aies=891) 13.7 % 11.7-14.4 PLATELET COUNT (BEAKER) (test wiyx=301) 354 K/CU MM 150-450 MEAN PLATELET VOLUME (BEAKER) (test qsqr=836) 9.5 fL 9.4-12.3 NUCLEATED RED BLOOD CELLS (BEAKER) (test laix=287) 0 /100 WBC 0-0 NEUTROPHILS RELATIVE PERCENT (BEAKER) (test bgmy=430) 61 % LYMPHOCYTES RELATIVE PERCENT (BEAKER) (test znuq=622) 30 % MONOCYTES RELATIVE PERCENT (BEAKER) (test ksau=282) 6 % EOSINOPHILS RELATIVE PERCENT (BEAKER) (test uddl=569) 2 % BASOPHILS RELATIVE PERCENT (BEAKER) (test xndl=168) 1 % NEUTROPHILS ABSOLUTE COUNT (BEAKER) (test mmro=323) 5.28 K/ L 1.56-6.13 LYMPHOCYTES ABSOLUTE COUNT (BEAKER) (test imbz=592) 2.59 K/ L 1.18-3.74 MONOCYTES ABSOLUTE COUNT (BEAKER) (test wlsj=652) 0.49 K/ L 0.24-0.36 EOSINOPHILS ABSOLUTE COUNT (BEAKER) (test mcnd=344) 0.15 K/ L 0.04-0.36 BASOPHILS ABSOLUTE COUNT (BEAKER) (test cqwt=475) 0.06 K/ L 0.01-0.08 IMMATURE GRANULOCYTES-RELATIVE PERCENT (AMRIJAAKER) (test padw=0072) 1 % 0-1
--- OUTSIDE RECORDS SUMMARY | 2018-10-30 08:24 | XMS REPORT ---
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 Active Not available Problems Name Status Onset Date Source Diabetes Mellitus Active Mixed Hyperlipidemia Active Essential Hypertension Active Procedures Date Name Performed by Gallbladder Surgery Information not available 07/05/2017 MAMMO, Screening, Digital, Bilateral One Step Diagnostic (Arc) [address] [place] [address] (Work Place) Lab Results None recorded. Past Encounters 07/05/2017 Type II Diabetes Mellitus Uncontrolled; Hyperlipidemia; History of Anemia; Screening for Malignant Neoplasm of Colon; Screening Mammography; Pruritus of Skin; Body Mass Index 30+ - Obesity Butch Murphy MD: [address] [facility], [address], [place] [address], Ph. Social History Smoking Status Never Smoker Vaccine List Notes: decline's all vaccine's -07/05/2017-scott Plan of Care Reminders Provider Appointments None recorded. Lab None recorded. Referral None recorded. Procedures None recorded. Surgeries None recorded. Imaging None recorded. Vitals Height Weight BMI Blood Pressure 4 ft 11 in 165 lbs 33.3 kg/m2 122/76 mm[Hg]
[2018-10-30 10:51] VITALS: BP 111/62
== END | disposition home or self-care (01) ==
LOC: OR 08:21
PROVIDERS: ATTEND Internal Medicine Gastroenterology
DX: K21.0 Gastro-esophageal reflux disease with esophagitis (principal); R10.13 Epigastric pain; D50.9 Iron deficiency anemia, unspecified; I10 Essential (primary) hypertension; E11.9 Type 2 diabetes mellitus without complications; E66.9 Obesity, unspecified; Z68.38 Body mass index [BMI] 38.0-38.9, adult; K57.30 Diverticulosis of large intestine without perforation or abscess without bleeding; K64.8 Other hemorrhoids; K29.70 Gastritis, unspecified, without bleeding; K44.9 Diaphragmatic hernia without obstruction or gangrene; K22.2 Esophageal obstruction; Z79.84 Long term (current) use of oral hypoglycemic drugs
CPT/HCPCS: 36415; 43239; 45378; 81025; 82948; 93005; J2250; J3010